=== PATIENT | female | born 1940 | race American Indian/Alaskan Native ===

== ENCOUNTER 2019-12-12 14:20 | Emergency (ER) | payer MEDICARE ==
--- NOTE | 2019-12-12 15:13 | Event Note ---
ED Screening Note Date of service: 12/12/19 Time: 15:10 ED Screening Note: 79 y o female presents with left ankle and foot and right side head pain s/p fall today twisted ankle on a step cc of headache on side of face This initial assessment/diagnostic orders/clinical plan/treatment(s) is/are subject to change based on patients health status, clinical progression and re- assessment by fellow clinical providers in the ED. Further treatment and workup at subsequent clinical providers discretion. Patient/guardian urged not to elope from the ED as their condition may be serious if not clinically assessed and managed. Initial orders include: left foot and ankle xray ct head/facial pain control
--- NOTE | 2019-12-12 17:24 | Cat Scan Report ---
CT head/brain wo con INDICATION / CLINICAL INFORMATION: 79 years Female; pain/fall. TECHNIQUE: Routine CT head without contrast. All CT scans at this location are performed using CT dos e reduction for ALARA by means of automated exposure control. Artifact is seen from patient's hair pi ns. COMPARISON: None. FINDINGS: BRAIN / INTRACRANIAL CONTENTS: No acute hemorrhage, mass effect, midline shift, hydrocephalus, or acu te, large territorial infarct. Minimal cerebral atrophy. There are mild areas of decreased attenuation in the white matter of the cerebral hemispheres. These are nonspecific findings and may be related to microangiopathy (hypertension, diabetes, atheroscleros is), given the patient's age. It might be difficult to evaluate for small areas of ischemia without d iffusion imaging by MRI. CRANIOCERVICAL JUNCTION: No significant abnormality. ORBITS: No significant abnormality of visualized orbits. SINUSES / MASTOIDS: No significant abnormality the visualized paranasal sinuses or mastoid air cells. ADDITIONAL FINDINGS: Atherosclerotic disease is seen in the anterior circulation. IMPRESSION: 1. No focal mass, hemorrhage, hydrocephalus, or acute, large territorial infarct. Signer Name: Carlos Orr MD, III Signed: 12/12/2019 5:20 PM Workstation Name: [id number]
[2019-12-12] MEDS ORDERED: HYDROcodone/ACETAMINOPHEN 5-325 MG TAB PO ONE (19:27)
[2019-12-12] MEDS ORDERED: HYDROcodone/ACETAMINOPHEN 5-325 MG TAB ONE (19:27)
[2019-12-12] MEDS ORDERED: KETOROLAC 30 MG/1 ML INJ IM ONE (21:01)
[2019-12-12] MEDS ORDERED: dexAMETHasone 4 MG/ML VIAL IM ONE (21:01)
--- NOTE | 2019-12-12 21:13 | Emergency Department Report ---
ED Fall HPI - General Chief Complaint: Fall Stated Complaint: FELL Time Seen by Provider: 12/12/19 19:26 Source: patient Mode of arrival: Wheelchair - History of Present Illness Initial Comments: Ms. Hooker 79 y o female presents with left ankle and foot and right side head pain s/p fall today, at [employer]. pt denies loc, states she was immediately ambulatoy on scene. Patient states she went home and took a nap. To her right knee and left ankle and Right lateral periorbital. There is no ecchymosis, mod joint swelling, there is no deformity. pt has hx of rhuematoid arthralgia , uses wheel chair for primary ambulation but able to transfer and traverse stairs without assistance. States no pain with stair climbing. There is no loss of vision, no headache, no dizziness, no light headedness, no wheel setter vertebral cervical spin tenderness. pain is rated at 8/10 aching and soreness. He says he was MD Complaint: fall Onset/Timin -: hour(s) Fall From: standing When Fall Occurred: 4-6 hours [employer] Fall Witnessed: yes, by bystander Place Fall Occurred: other ([employer] ) Loss of Consciousness: none Prolonged Down Time?: no Symptoms Prior to Fall: none Location: face Location - Extremities: Left: Ankle, Right: Knee Severity: moderate Severity scale (0 -10): 5 Quality: aching Context: tripped/slipped Associated Symptoms: unable to walk (normal baseline for this patient ). denies: headache, neck pain, numbness, weakness, chest paint, abdominal pain, hematuria, lightheaded, vertigo, confusion - Related Data Previous Rx's Medication Instructions Recorded Last Taken Type Acetaminophen [Tylenol] 1,000 mg PO Q6HR PRN #30 tablet 12/12/19 Unknown Rx Acetaminophen/Codeine [Tylenol 1 tab PO Q6H PRN #12 tab 12/12/19 Unknown Rx /Codeine # 3 tab] Diclofenac 1% [Diclofenac 1% 1 applicatio TP TID PRN #1 tube 12/12/19 Unknown Rx topical gel] predniSONE [Deltasone] 20 mg PO QDAY 5 Days #5 tab 12/12/19 Unknown Rx Allergies Allergy/AdvReac Type Severity Reaction Status Date / Time No Known Allergies Allergy Unverified 12/12/19 14:27 ED Review of Systems ROS: Stated complaint: FELL Other details as noted in HPI Constitutional: denies: chills, fever Eyes: denies: eye pain, eye discharge, vision change ENT: denies: ear pain, throat pain Respiratory: denies: cough, shortness of breath, wheezing Cardiovascular: denies: chest pain, palpitations Endocrine: no symptoms reported Gastrointestinal: denies: abdominal pain, nausea, vomiting, diarrhea Genitourinary: denies: urgency, dysuria, discharge Musculoskeletal: joint swelling, arthralgia, myalgia, other (right knee and left ankle pain ) Skin: denies: rash, lesions Neurological: denies: headache, weakness, numbness, paresthesias, confusion, vertigo Psychiatric: denies: anxiety, depression Hematological/Lymphatic: denies: easy bleeding, easy bruising ED Past Medical Hx - Past Medical History Hx Hypertension: Yes Hx Diabetes: Yes Hx Arthritis: Yes Additional medical history: high cholesterol - Surgical History Past Surgical History?: No - Social History Smoking Status: Former Smoker Substance Use Type: None - Medications Home Medications: Home Medications Medication Instructions Recorded Confirmed Last Taken Type Acetaminophen [Tylenol] 1,000 mg PO Q6HR PRN #30 tablet 12/12/19 Unknown Rx Acetaminophen/Codeine [Tylenol 1 tab PO Q6H PRN #12 tab 12/12/19 Unknown Rx /Codeine # 3 tab] Diclofenac 1% [Diclofenac 1% 1 applicatio TP TID PRN #1 tube 12/12/19 Unknown Rx topical gel] predniSONE [Deltasone] 20 mg PO QDAY 5 Days #5 tab 12/12/19 Unknown Rx ED Physical Exam - General Limitations: No Limitations General appearance: alert, in no apparent distress - Head Head exam: Present: normocephalic - Expanded Head Exam Expanded Head exam: Present: contusion (right lateral periorbital tenderness no swelling no crepitus no deformity ). Absent: laceration, abrasion, hematoma, racoon eyes, gonzalez's sign, tenderness of temporal artery, CSF rhinorrhea, CSF otorrhea - Eye Eye exam: Present: normal appearance, PERRL, EOMI. Absent: nystagmus Pupils: Present: normal accommodation - ENT ENT exam: Present: normal orophraynx, mucous membranes moist, TM's normal bilaterally, normal external ear exam - Neck Neck exam: Present: normal inspection, tenderness (right latera neck muscle pain to deep palpation, no posterior lateral vertebral point tenderness ), full ROM. Absent: meningismus, lymphadenopathy, thyromegaly - Expanded Neck Exam Expanded Neck exam: Present: tenderness. Absent: midline deformity, anterior neck swelling, thyroid mass, carotid bruit, tracheal deviation - Respiratory Respiratory exam: Present: normal lung sounds bilaterally. Absent: respiratory distress, wheezes, stridor, chest wall tenderness - Cardiovascular Cardiovascular Exam: Present: regular rate, normal rhythm, normal heart sounds. Absent: systolic murmur, diastolic murmur, rubs, gallop - GI/Abdominal GI/Abdominal exam: Present: soft. Absent: distended, tenderness, bruit, hernia - Rectal Rectal exam: Present: deferred - Extremities Exam Extremities exam: Present: tenderness, joint swelling. Absent: pedal edema - Expanded Lower Extremity Exam Left Ankle exam: Present: tenderness, swelling. Absent: abrasion, laceration, ecchymosis, deformity, crepidus, dislocation, erythema, anterior draw sign Foot/Toe exam: Present: full ROM, swelling. Absent: tenderness, abrasion, laceration, ecchymosis, deformity, crepidus, dislocation, erythema, amputation, puncture wound, foreign body, calcaneal tenderness, tenderness at base of 5th metatarsal Neuro vascular tendon exam: Absent: pulse deficit, motor deficit, sensory deficit, tendon deficit Gait: Positive: observed and limited by pain Right Knee exam: Present: tenderness, swelling, effusion, pain w/ pronation/supination, pain/laxity with valgus, pain/laxity with varus, full knee extension. Absent: abrasion, laceration, ecchymosis, deformity, crepidus, dislocation, erythema, posterior draw sign Lower Leg exam: Present: full ROM. Absent: tenderness Ankle exam: Present: full ROM. Absent: tenderness Foot/Toe exam: Present: full ROM. Absent: tenderness Neuro vascular tendon exam: Absent: pulse deficit (this is), motor deficit, sensory deficit, tendon deficit Gait: Positive: observed and limited by pain - Back Exam Back exam: Present: normal inspection, full ROM. Absent: tenderness, CVA tenderness (R), CVA tenderness (L), muscle spasm, paraspinal tenderness, vertebral tenderness - Expanded Back Exam Expanded Back exam: Absent: saddle anesthesia Back exam: Positive Straight Leg Raise: Left, Right - Neurological Exam Neurological exam: Present: alert, oriented X3, CN II-XII intact, normal gait, reflexes normal. Absent: motor sensory deficit - Expanded Neurological Exam Expanded Patient oriented to: Present: person, place, time Speech: Present: fluid speech Motor strength exam: RUE: 5, LUE: 5, RLE: 5, LLE: 5 Best Eye Response (Roni): (4) open spontaneously Best Motor Response (Roni): (6) obeys commands Best Verbal Response ([place]): (5) oriented Roni Total: 15 - Psychiatric Psychiatric exam: Present: normal affect, normal mood - Skin Skin exam: Present: warm, dry, intact, normal color. Absent: rash ED Course Vital Signs 12/12/19 14:28 Temperature 98.7 F Pulse Rate 88 Respiratory 18 Rate Blood Pressure 150/86 O2 Sat by Pulse 97 Oximetry ED Medical Decision Making - Radiology Data Radiology results: report reviewed, image reviewed ankle foot , moderate soft tissue swelling, no fracture, no dislocation, moderate degenerative changes , CT head: normal no mass no bleed, degenerative changes no acute changes - Medical Decision Making ankle foot , moderate soft tissue swelling, no fracture, no dislocation, moderate degenerative changes , CT head: normal no mass no bleed, degenerative changes no acute changes. Pt declines knee and cspine fims, and ct states they are at baseline, confirms same, There is no weakness, no loss or decrease in bowel or bladder function, pain is much improved per patient, plan: dc to home with rx for Tylenl 3, Diclofenac Gel, follow up with PCP and Ortho in 2-3 days. Rice therapy as directed, melvi wraps to left ankle and right knee, pt tranfers self from bed to chair, there is no change in toileting, pt has accessible home verified with and pcp, wishes to be dc'd home at this time. given improvement in symptoms,. negative xrays and ct head. are normal, will dc to home in stable condition at this time. Critical care attestation.: If time is entered above; I have spent that time in minutes in the direct care of this critically ill patient, excluding procedure time. ED Disposition Clinical Impression: Fall Qualifiers: Encounter type: initial encounter Qualified Code(s): W19.XXXA - Unspecified fall, initial encounter Ankle sprain Qualifiers: Encounter type: initial encounter Involved ligament of ankle: unspecified ligament Laterality: left Qualified Code(s): S93.402A - Sprain of unspecified ligament of left ankle, initial encounter Knee sprain Qualifiers: Encounter type: initial encounter Involved ligament of knee: unspecified ligament Laterality: right Qualified Code(s): S83.91XA - Sprain of unspecified site of right knee, initial encounter Disposition: TO HOME OR SELFCARE Is pt being admited?: No Does the pt Need Aspirin: No Condition: Stable Instructions: Osteoarthritis (ED), Ankle Sprain (ED), Ankle Exercises (GEN), Knee Exercises (GEN), Knee Sprain (ED) Prescriptions: Acetaminophen [Tylenol] 1,000 mg PO Q6HR PRN #30 tablet PRN Reason: pain predniSONE [Deltasone] 20 mg PO QDAY 5 Days #5 tab Diclofenac 1% [Diclofenac 1% topical gel] 1 applicatio TP TID PRN #1 tube PRN Reason: Pain , Severe (7-10) Acetaminophen/Codeine [Tylenol /Codeine # 3 tab] 1 tab PO Q6H PRN #12 tab PRN Reason: sever pain Referrals: MATTEO FLANAGAN MD [Primary Care Provider] - 3-5 Days DIGNA HASKINS MD [Staff Physician] - 3-5 Days Time of Disposition: 21:36
[2019-12-12 22:06] VITALS: BP 161/80
--- NOTE | 2019-12-12 22:19 | Cat Scan Report ---
CT CERVICAL SPINE WITHOUT CONTRAST INDICATION / CLINICAL INFORMATION: Trauma. Patient fell sustaining neck injury. Neck pain. TECHNIQUE: Axial CT images were obtained through the cervical spine. Sagittal and coronal reformatted images wer e produced. All CT scans at this location are performed using CT dose reduction for ALARA by means of automated exposure control. COMPARISON: None available. FINDINGS: ALIGNMENT: No significant abnormality. VERTEBRAE: Indication of fracture. DISC SPACES: Loss of disc height at multiple levels compatible with widespread disc desiccation. Facet and uncovertebral arthritic changes are present throughout. There is however no evidence of janessa tral canal stenosis or significant neuroforaminal encroachment. CRANIOCERVICAL JUNCTION:No significant abnormality. SPINAL CANAL: No significant abnormality. PARASPINAL SOFT TISSUES: Calcified atherosclerotic plaque is present at the carotid bifurcations bila terally. No additional paraspinous abnormalities are identified. ADDITIONAL FINDINGS: None. LUNG APICES: Visualized lung apices are free from inflammatory disease. No lung nodules are identifie d. IMPRESSION: 1. Widespread cervical spondylosis. 2. No indication of fracture or traumatic subluxation. Signer Name: Faisal Duran MD Signed: 12/12/2019 10:15 PM Workstation Name: [id number]
--- NOTE | 2019-12-13 10:30 | XRay Report ---
RIGHT FOOT 3 VIEWS INDICATION / CLINICAL INFORMATION: pain. COMPARISON: None available. FINDINGS: Advanced degenerative change in the first metatarsophalangeal joint. No other significant skeletal ab normality. Signer Name: Toi Garcia MD FACNicky Signed: 12/12/2019 3:57 PM Workstation Name: [id number]
--- NOTE | 2019-12-13 10:35 | XRay Report ---
RIGHT ANKLE 3 VIEWS INDICATION / CLINICAL INFORMATION: pain. COMPARISON: None available. FINDINGS: No significant skeletal abnormality. Signer Name: Toi Garcia MD FACR Signed: 12/12/2019 3:57 PM Workstation Name: [id number]
== END 2019-12-12 21:50 | disposition home or self-care (01) ==
LOC: ED 14:20
DX: S93.402A Sprain of unspecified ligament of left ankle, initial encounter (principal); S83.91XA Sprain of unspecified site of right knee, initial encounter; I10 Essential (primary) hypertension; E11.9 Type 2 diabetes mellitus without complications; M19.90 Unspecified osteoarthritis, unspecified site; Z87.891 Personal history of nicotine dependence; Z79.899 Other long term (current) drug therapy; W19.XXXA Unspecified fall, initial encounter; Y93.89 Activity, other specified; Y92.89 Other specified places as the place of occurrence of the external cause; Y99.8 Other external cause status
CPT/HCPCS: 70450; 72125; 73610; 73630; 96372; 99283; J1100; J1885